=== PATIENT | female | born 1945 | race Caucasian/White ===

== ENCOUNTER → 2017-04-01 | Outpatient (CLI) | payer MEDICARE, OTHER ==
[~2017-04-01] MED LIST: APIX2.5T PO; IOHEXOL 300 MG/ML 100ML VIAL. IV ONE; LEVO25TA55 PO
--- NOTE | 2017-04-01 17:28 | KCIC ---
CTA of the head without and with contrast and CTA of the neck with contrast 04/01/2017 Clinical history: Amaurosis fugax involving the right eye. Technique: Unenhanced, contiguous, 3 mm axial sections were obtained through the head. After the intravenous administration of 95 cc of Omnipaque 300, contiguous, 0.6 mm axial sections were obtained through the upper chest, neck and head. Multiplanar 3-D MIP and volume rendered 3-D reconstructed images were obtained. One or more of the following individualized dose reduction techniques were utilized for this study: 1. Automated exposure control. 2. Adjustment of the mA and/or kV according to patient size. 3. Use of iterative reconstruction technique. Findings: Comparison is made to patient's MRI of the brain dated 04/05/2010. The unenhanced CT images of the head demonstrate generalized parenchymal atrophy. No acute parenchymal abnormality is seen. The origin of the brachiocephalic, left common carotid and left subclavian arteries from the thoracic aortic arch patent. The origin the right common carotid artery and both vertebral arteries are patent. The common carotid arteries are mildly tortuous but patent. No significant atheromatous plaque formation is seen involving either carotid bifurcation. No area stenosis or occlusion is seen. The internal carotid arteries within the neck are tortuous but patent. The left vertebral artery is dominant. Both vertebral arteries demonstrate normal antegrade flow. No area of stenosis or occlusion is seen. Intracranially mild atherosclerotic plaque formation is seen involving the cavernous portions of both internal carotid arteries. No area of stenosis or occlusion is seen. The distal vertebral arteries and basilar artery are patent. The anterior, middle and posterior cerebral arteries and their branches are within normal limits. No area of stenosis or occlusion is seen. No intracranial aneurysm is noted. The major dural venous sinuses are patent. No area of abnormal contrast enhancement is seen. Mild to moderate mucosal thickening is seen involving both maxillary sinuses, left greater than right. Mild mucosal thickening is seen scattered throughout the ethmoid air cells. No acute soft tissue abnormality is seen involving the neck. Degenerative changes are seen involving the uncovertebral and facet joints throughout cervical spine. Impression: No area of stenosis or occlusion is seen. Stenosis calculation for CTA are based on measurement of the distal internal carotid artery diameter in accordance with the NASCET methodology. Electronically signed by: Emir Rosales MD (04/01/2017 5:24 PM)
== END | disposition home or self-care (01) ==
LOC: KCIC CT 12:29
PROVIDERS: ATTEND Psychiatry & Neurology Neurology with Special Qualifications in Child Neurology
DX: G45.3 Amaurosis fugax (principal)
CPT/HCPCS: 70496; 70498; 82565; Q9967

== ENCOUNTER → 2017-06-30 | Outpatient (CLI) | payer MEDICARE, OTHER ==
[~2017-06-30] MED LIST changes: -IOHEXOL 300 MG/ML 100ML VIAL. IV ONE
--- NOTE | 2017-06-30 14:10 | RAD ---
EXAM: Nuclear bone scan. HISTORY: Right hip pain status post arthroplasty. COMPARISON: MRI dated 05/15/2015. TECHNIQUE: Following the intravenous injection of 5.8 mCi of Tc 99m labeled methylene diphosphonate (MDP), scintigraphic imaging of the pelvis and proximal lower extremities was performed. FINDINGS: There is photopenia overlying the right acetabulum and femoral head due to a right hip arthroplasty. There is increased rotation activity within the proximal right femoral diaphysis at the tip of the arthroplasty femoral stem component. No additional abnormal tracer activity is seen. IMPRESSION: Focal increased tracer activity within the proximal right femoral diaphysis at the suspected tip of a right femoral stem arthroplasty component. This is most likely due to loosening. The possibility of changes due to relative recent hip arthroplasty surgery or infection is not excluded on this exam. Correlate with hip radiograph.
== END | disposition home or self-care (01) ==
LOC: NM 07:56
PROVIDERS: ATTEND Orthopaedic Surgery Orthopaedic Trauma
DX: M25.551 Pain in right hip (principal); I10 Essential (primary) hypertension; I48.91 Unspecified atrial fibrillation; Z79.01 Long term (current) use of anticoagulants; Z96.641 Presence of right artificial hip joint
CPT/HCPCS: 78300; A9503

== ENCOUNTER → 2017-10-19 | Outpatient (CLI) | payer MEDICARE, OTHER | END | disposition home or self-care (01) | LOC: KCIC US 10:54 | DX: R22.1 Localized swelling, mass and lump, neck (principal) | CPT/HCPCS: 76536 ==

== ENCOUNTER → 2018-04-07 | Outpatient (CLI) | payer MEDICARE, OTHER | END | disposition home or self-care (01) | LOC: KCIC CT 10:04 | DX: K44.9 Diaphragmatic hernia without obstruction or gangrene (principal); I10 Essential (primary) hypertension | CPT/HCPCS: 71250 ==

== ENCOUNTER → 2018-05-09 | Outpatient (CLI) | payer MEDICARE, OTHER | END | disposition home or self-care (01) | LOC: NM 08:32 | DX: R07.9 Chest pain, unspecified (principal); R06.02 Shortness of breath; R55 Syncope and collapse; I10 Essential (primary) hypertension; I48.91 Unspecified atrial fibrillation; Z96.641 Presence of right artificial hip joint | CPT/HCPCS: 71046; 78582; 96374; A9540; A9558 ==

== ENCOUNTER → 2018-09-22 | Outpatient (CLI) | payer MEDICARE, OTHER ==
--- NOTE | 2018-09-23 14:03 | RAD ---
MR of the left shoulder Indication: Fall 3 weeks ago. Pain and limited range of motion.. Comparison: None are available. Technique: Standard multiplanar sequences are obtained. Findings: Artifact: No significant image degradation. Acromioclavicular joint: Degenerative, small undersurface osteophytes. Rotator cuff: * Supraspinatus-infraspinatus tendon: Deep linear undersurface tear of the supraspinatus tendon about 1 cm AP diameter. Depth is greater than 90% of the footplate, no definite complete violation of the bursal layer although the bursal layer is very thin. No retraction. * Subscapularis tendon: Tendinosis. * Muscle bulk: Mild atrophy * Subacromial subdeltoid bursa: No significant effusion. Fluid: Small glenohumeral effusion. Glenohumeral cartilage: Moderate to severe primary osteoarthritis. Multiple osteochondral loose bodies, most are clustered in the subscapularis recess. Another body identified posterior to the proximal humeral shaft, may be within an elongated axillary recess. Labrum: Suboptimal evaluation due to motion degradation but no definite detachment. Biceps tendon: Tendinosis Bones: No lesion or acute fracture. Soft tissue: No acute findings.. Impression: 1. Small but very deep linear undersurface tear of the supraspinatus tendon. 2. Moderate to severe primary osteoarthritis with multiple loose bodies. Electronically signed by: Jose Miguel Valdez MD (09/23/2018 1:59 PM) [id number]
== END | disposition home or self-care (01) ==
LOC: MRI 15:30
PROVIDERS: ATTEND Orthopaedic Surgery
DX: S46.012A Strain of muscle(s) and tendon(s) of the rotator cuff of left shoulder, initial encounter (principal); M19.012 Primary osteoarthritis, left shoulder; M25.712 Osteophyte, left shoulder; W19.XXXA Unspecified fall, initial encounter; Y93.89 Activity, other specified; Y92.89 Other specified places as the place of occurrence of the external cause; Y99.8 Other external cause status
CPT/HCPCS: 73221